=== PATIENT | male | born 1950 | race Caucasian/White ===

== ENCOUNTER → 2020-08-03 09:29 | Outpatient (CLI) | payer MEDICARE, OTHER, SELFPAY ==
[2020-08-03 21:06] LABS: SARS-CoV-2 RNA PCR Negative
== END ==
PROVIDERS: PCP Family Medicine; Visit Provider Family Medicine
DX: Z20.822 Contact with and (suspected) exposure to COVID-19 (principal)
CPT/HCPCS: C9803; U0003; U0005

== ENCOUNTER 2020-08-18 12:42 | Outpatient (CLI) | payer MEDICARE, OTHER, SELFPAY ==
[2020-08-18 13:24] LABS: Basophils Absolute Auto 0.1 K/mm3 (0.0-0.1); Basophils Percent Auto 0.6 % (0.2-1.2); Eosinophils Absolute Auto 0.4 K/mm3 (0-0.3); Hemoglobin 9.2 g/dL (14.0-18.0); Immature Granulocyte Absolute 1.73 K/mm3 (0.00-0.031); Immature Granulocyte Percent A 13.9 % (0-0.5); Lymphocytes Absolute Auto 2.03 K/mm3 (0.9-3.2); Lymphocytes Percent Auto 16.3 % (18.3-44.2); Mean Corpuscular HGB Conc 30.7 g/dl (32-36); Mean Corpuscular Hemoglobin 27.4 pg (26-34); Mean Corpuscular Volume 89.3 fl (80-100); Mean Platelet Volume 12.3 fl (7.4-10.4); Monocytes Absolute Auto 2.5 K/mm3 (0.1-0.6); Monocytes Percent Auto 20.1 % (2.6-8.5); Neutrophils Absolute Auto 5.8 K/mm3 (1.3-6.7); Neutrophils Percent Auto 46.1 % (45.5-73.1); Platelet Count Result 105 k/mm3 (150-375); Red Blood Count 3.36 M/mm3 (4.6-6.20); Red Cell Distribution Width 18.8 % (11.5-14.5); White Blood Count 12.5 K/mm3 (4.5-10.0)
[2020-08-18 13:53] LABS: Hypochromasia 1+ (NORMAL); Platelet Estimate Adequate (Adequate); Poikilocytosis 1+ (NORMAL); Tear Drop Cells 1+ (NORMAL)
[2020-08-18 13:54] LABS: Polychromasia 1+ (NORMAL)
== END 2020-08-18 12:43 | disposition home or self-care (01) ==
LOC: ANHLAB 12:46
PROVIDERS: PCP Family Medicine
DX: D69.6 Thrombocytopenia, unspecified (principal)
CPT/HCPCS: 36415; 85025

== ENCOUNTER 2020-09-01 13:01 | Outpatient (RCR) | payer MEDICARE, OTHER, SELFPAY ==
[2020-08-25 12:10] LABS: Basophils Percent Auto 0.2 % (0.2-1.2); Eosinophils Percent Auto 0.2 % (0-4.4); Hemoglobin 8.8 g/dL (14.0-18.0); Immature Granulocyte Absolute 0.71 K/mm3 (0.00-0.031); Immature Granulocyte Percent A 12.6 % (0-0.5); Lymphocytes Absolute Auto 1.48 K/mm3 (0.9-3.2); Lymphocytes Percent Auto 26.3 % (18.3-44.2); Mean Corpuscular HGB Conc 30.3 g/dl (32-36); Mean Corpuscular Hemoglobin 27.7 pg (26-34); Mean Corpuscular Volume 91.2 fl (80-100); Mean Platelet Volume 12.1 fl (7.4-10.4); Monocytes Absolute Auto 1.2 K/mm3 (0.1-0.6); Monocytes Percent Auto 21.8 % (2.6-8.5); Neutrophils Absolute Auto 2.2 K/mm3 (1.3-6.7); Neutrophils Percent Auto 38.9 % (45.5-73.1); Platelet Count Result 106 k/mm3 (150-375); Red Blood Count 3.18 M/mm3 (4.6-6.20); White Blood Count 5.6 K/mm3 (4.5-10.0)
[2020-08-25 14:26] LABS: Hypochromasia 1+ (NORMAL); Ovalocytes 1+ (NORMAL); Platelet Estimate Adequate (Adequate); Tear Drop Cells 1+ (NORMAL)
[2020-09-01 13:23] LABS: Hematocrit 31.2 % (42.0-52.0); Hemoglobin 9.6 g/dL (14.0-18.0); Mean Corpuscular HGB Conc 30.8 g/dl (32-36); Mean Corpuscular Hemoglobin 28.6 pg (26-34); Mean Corpuscular Volume 92.9 fl (80-100); Mean Platelet Volume 12.7 fl (7.4-10.4); Platelet Count Result 108 k/mm3 (150-375); Red Blood Count 3.36 M/mm3 (4.6-6.20); Red Cell Distribution Width 19.9 % (11.5-14.5); White Blood Count 7.8 K/mm3 (4.5-10.0)
[2020-09-01 13:57] LABS: Band Neutrophils Percent 5 % (0-6); Lymphocytes Absolute Manual 2.26 K/mm3 (1.1-4.5); Monocytes Percent Manual 18 % (3-9); Neutrophils Absolute Manual 4.13 K/mm3 (1.3-6.7); Neutrophils Percent Manual 48 % (46-73); Ovalocytes 1+ (NORMAL); Platelet Estimate Adequate (Adequate); Total Cells Counted 100
[2020-09-01 13:58] LABS: Smudge Cells PRESENT; Tear Drop Cells 1+ (NORMAL)
== END 2020-11-23 23:59 | disposition home or self-care (01) ==
LOC: ANHLAB 13:01
PROVIDERS: PCP Family Medicine
DX: D69.6 Thrombocytopenia, unspecified (principal)
CPT/HCPCS: 36415; 85025

== ENCOUNTER 2021-02-19 10:09 | Outpatient (RCR) | payer MEDICARE, OTHER, SELFPAY ==
[2020-12-13 13:14] LABS: Basophils Percent Auto 0.5 % (0.2-1.2); Eosinophils Percent Auto 0.3 % (0-4.4); Hematocrit 33.6 % (42.0-52.0); Immature Granulocyte Percent A 13.9 % (0-0.5); Lymphocytes Absolute Auto 1.89 K/mm3 (0.9-3.2); Lymphocytes Percent Auto 23.8 % (18.3-44.2); Mean Corpuscular HGB Conc 29.8 g/dl (32-36); Mean Corpuscular Hemoglobin 28.2 pg (26-34); Mean Corpuscular Volume 94.6 fl (80-100); Mean Platelet Volume 12.5 fl (7.4-10.4); Monocytes Absolute Auto 1.9 K/mm3 (0.1-0.6); Monocytes Percent Auto 24.2 % (2.6-8.5); Neutrophils Percent Auto 37.3 % (45.5-73.1); Platelet Count Result 76 k/mm3 (150-375); Red Blood Count 3.55 M/mm3 (4.6-6.20); Red Cell Distribution Width 18.1 % (11.5-14.5); White Blood Count 7.9 K/mm3 (4.5-10.0)
[2020-12-13 13:48] LABS: Anisocytosis 1+ (NORMAL); Ovalocytes 1+ (NORMAL); Platelet Estimate Decreased (Adequate); Tear Drop Cells 2+ (NORMAL)
[2021-02-19 10:58] LABS: Basophils Absolute Auto 0.1 K/mm3 (0.0-0.1); Basophils Percent Auto 0.7 % (0.2-1.2); Eosinophils Percent Auto 0.1 % (0-4.4); Hematocrit 35.6 % (42.0-52.0); Hemoglobin 10.7 g/dL (14.0-18.0); Immature Granulocyte Absolute 1.55 K/mm3 (0.00-0.031); Immature Granulocyte Percent A 16.1 % (0-0.5); Lymphocytes Absolute Auto 1.67 K/mm3 (0.9-3.2); Lymphocytes Percent Auto 17.4 % (18.3-44.2); Mean Corpuscular HGB Conc 30.1 g/dl (32-36); Mean Corpuscular Hemoglobin 29.6 pg (26-34); Mean Corpuscular Volume 98.6 fl (80-100); Mean Platelet Volume 11.6 fl (7.4-10.4); Monocytes Absolute Auto 2.3 K/mm3 (0.1-0.6); Monocytes Percent Auto 23.7 % (2.6-8.5); Nucleated Red Blood Cells Perc 0.2 % (0.0-0.2); Platelet Count Result 60 k/mm3 (150-375); Red Blood Count 3.61 M/mm3 (4.6-6.20); Red Cell Distribution Width 20.2 % (11.5-14.5); White Blood Count 9.6 K/mm3 (4.5-10.0)
[2021-02-19 11:29] LABS: Platelet Estimate Decreased (Adequate)
[2021-02-19 11:30] LABS: Anisocytosis 1+ (NORMAL); Ovalocytes 1+ (NORMAL); Tear Drop Cells 1+ (NORMAL)
== END 2021-03-13 23:59 | disposition home or self-care (01) ==
LOC: ANHLAB 10:09
PROVIDERS: PCP Family Medicine
DX: C93.10 Chronic myelomonocytic leukemia not having achieved remission (principal)
CPT/HCPCS: 36415; 85025; 85055

== ENCOUNTER 2021-03-15 10:29 | Outpatient (CLI) | payer MEDICARE, OTHER, SELFPAY ==
[2021-03-15 13:22] LABS: Hepatitis C Virus Antibody Negative (Negative)
[2021-03-18 13:32] LABS: Ceruloplasmin 30 mg/dL (18-36)
[2021-03-19 18:33] LABS: Alpha Fetoprotein Tumor Marker 3.7 ng/mL (<6.1)
[2021-03-20 11:15] LABS: Gliadin AB, IgG 5 Units (<20); Reticulin IgA Negative (Negative); TTG IGA AB 1 U/mL (<4)
[2021-03-21] LABS: Mitochondrial (M2) Ab (IgG) <=20.0 U (<=20.0)
== END 2021-03-15 10:30 | disposition home or self-care (01) ==
PROVIDERS: PCP Family Medicine
DX: K74.60 Unspecified cirrhosis of liver (principal); K76.9 Liver disease, unspecified; D50.9 Iron deficiency anemia, unspecified
CPT/HCPCS: 36415; 82104; 82105; 82390; 83516; 83520; 86038; 86235; 86255; 86803

== ENCOUNTER 2021-03-15 10:46 | Outpatient (RCR) | payer MEDICARE, OTHER, SELFPAY ==
[2021-03-15 12:07] LABS: Hematocrit 33.6 % (42.0-52.0); Hemoglobin 10.3 g/dL (14.0-18.0); Immature Platelet Fraction Pct 11.2 % (0.9-11.2); Mean Corpuscular HGB Conc 30.7 g/dl (32-36); Mean Corpuscular Hemoglobin 29.9 pg (26-34); Mean Corpuscular Volume 97.7 fl (80-100); Platelet Count Result 48 k/mm3 (150-375); Red Blood Count 3.44 M/mm3 (4.6-6.20); Red Cell Distribution Width 19.3 % (11.5-14.5); White Blood Count 9.5 K/mm3 (4.5-10.0)
[2021-03-15 13:39] LABS: Atypical Lymphocytes Present; Band Neutrophils Percent 7 % (0-6); Lymphocytes Absolute Manual 5.41 K/mm3 (1.1-4.5); Metamyelocytes Percent 5 %; Monocytes Absolute Manual 0.38 K/mm3 (0.1-0.90); Monocytes Percent Manual 4 % (3-9); Neutrophils Absolute Manual 3.23 K/mm3 (1.3-6.7); Neutrophils Percent Manual 27 % (46-73); Platelet Estimate Decreased (Adequate); Total Cells Counted 100
== END 2021-06-13 23:59 | disposition home or self-care (01) ==
LOC: ANHLAB 10:46
PROVIDERS: PCP Family Medicine
DX: C93.10 Chronic myelomonocytic leukemia not having achieved remission (principal)
CPT/HCPCS: 36415; 82104; 82105; 82390; 83516; 83520; 85025; 85055; 86038; 86235; 86255; 86803